=== PATIENT | female | born 1965 | race Caucasian/White ===

== ENCOUNTER 2021-01-29 10:53 | Inpatient (IN) ==
[2021-01-29] MEDS ORDERED: SODIUM CHLORIDE 0.9% 1,000 ML IV STA (11:32)
[2021-01-29 13:07] LABS: Basophils % 0.4 % (0.0-0.8); Eosinophils % 0.4 % (0.00-10.9); Hematocrit 26.4 VOL% (35.7-47.0); Hemoglobin 9.4 GM/DL (12.0-16.0); Lymphocytes # 0.2 10*3/uL (1.4-4.0); Lymphocytes % 10.3 % (21.3-54.2); Mean Corpuscular HGB Conc 35.6 GM/DL (32-36); Mean Corpuscular Volume 90.1 FL (87-102); Mean Platelet Volume 8.4 FL (9.6-12.0); Neutrophils % 71.9 % (38.7-73.9); Platelet Count 343 T/CUMM (130-400); Red Blood Count 2.93 MC/CUMM (3.8-5.5); Red Cell Distribution Width 17.9 % (9.3-17.3); White Blood Count 2.2 T/CUMM (4-12)
[2021-01-29 13:27] LABS: Albumin 2.7 G/DL (3.4-5.0); Bilirubin,Total 0.5 MG/DL (0.20-1.00); Osmolality,Calculated 276.5 MOS/KG (273-304); Total Protein 6.2 G/DL (6.4-8.2)
[2021-01-29 13:28] LABS: Potassium 2.3 MMOL/L (3.5-5.1)
[2021-01-29] MEDS ORDERED: POTASSIUM CHLORIDE 20 MEQ TABLET PO STA (13:32)
[2021-01-29] MEDS ORDERED: DEXTROSE 50% 25 GM/50 ML VIAL IV PRN (14:06)
[2021-01-29] MEDS ORDERED: ONDANSETRON 4 MG/2 ML VIAL IV PRN (14:06)
[2021-01-29] MEDS ORDERED: ACETAMINOPHEN 325 MG TABLET PO PRN (14:06)
[2021-01-29] MEDS ORDERED: GLUCAGON 1 MG VIAL IM PRN (14:06)
[2021-01-29] MEDS ORDERED: MAGNESIUM SULF RIDER 4 GM/100 ML PREMIX IV PRN (14:34)
[2021-01-29 14:39] LABS: Eosinophils 2 % (0-10); Lymphocytes 8 % (20-55); Segmented Neutrophils 77 % (50-85); Total Cells Counted 100
[2021-01-29 14:40] LABS: Hypochromasia 2+; Microcytosis 1+
[2021-01-29 14:41] LABS: Platelet Estimate Increased
[2021-01-29] MEDS: MAGNESIUM SULF RIDER 4 GM/100 ML PREMIX IV ONE ×2 (15:00)
[2021-01-29] MEDS: MAGNESIUM SULF RIDER 2 GM/50 ML PREMIX IV PRN ×2 (15:00→17:18)
[2021-01-29] MEDS: DEXAMETHASONE 4 MG TABLET PO SCH (17:18)
[2021-01-29] MEDS: PANTOPRAZOLE 40 MG VIAL IV SCH (17:18)
[2021-01-29] MEDS: NYSTATIN 500,000 UNIT/5 ML UDCUP PO SCH ×3 (17:19→20:05)
[2021-01-29] MEDS: DEXT 5% NACL 0.45% KCL 40 MEQ 40 MEQ/1,000 ML BAG IV SCH (20:05)
[2021-01-30] MEDS: DEXT 5% NACL 0.45% KCL 40 MEQ 40 MEQ/1,000 ML BAG IV SCH ×2 (03:30→19:36)
[2021-01-30 06:17] LABS: Basophils % 0.8 % (0.0-0.8); Eosinophils % 0.8 % (0.00-10.9); Hematocrit 24.8 VOL% (35.7-47.0); Hemoglobin 8.9 GM/DL (12.0-16.0); Lymphocytes # 0.2 10*3/uL (1.4-4.0); Lymphocytes % 13.7 % (21.3-54.2); Mean Corpuscular HGB Conc 35.9 GM/DL (32-36); Mean Corpuscular Volume 89.9 FL (87-102); Mean Platelet Volume 8.5 FL (9.6-12.0); Monocytes % 15.3 % (1.7-12.7); Neutrophils % 69.4 % (38.7-73.9); Platelet Count 335 T/CUMM (130-400); Red Blood Count 2.76 MC/CUMM (3.8-5.5); Red Cell Distribution Width 18.3 % (9.3-17.3); White Blood Count 1.2 T/CUMM (4-12)
[2021-01-30 06:39] LABS: Calcium 8.3 MG/DL (8.5-10.1); Osmolality,Calculated 279.4 MOS/KG (273-304); Potassium 3.2 MMOL/L (3.5-5.1)
[2021-01-30 06:45] LABS: Atypical Lymphocytes Few; Hypochromasia 1+; Lymphocytes 15 % (20-55); Microcytosis 1+; Platelet Estimate Adequate; Segmented Neutrophils 73 % (50-85); Total Cells Counted 100
[2021-01-30] MEDS: MAGNESIUM SULF RIDER 2 GM/50 ML PREMIX IV PRN (08:51)
[2021-01-30] MEDS: NYSTATIN 500,000 UNIT/5 ML UDCUP PO SCH ×4 (08:52→20:39)
[2021-01-30] MEDS: PANTOPRAZOLE 40 MG VIAL IV SCH (08:54)
[2021-01-30] MEDS ORDERED: HYDROcod/ACETAMIN 7.5-325 MG/15 ML UDCUP PO PRN (08:55)
[2021-01-30] MEDS ORDERED: MORPHINE 2 MG/1 ML SYRINGE IV PRN (08:56)
[2021-01-30] MEDS: FILGRASTIM-SNDZ 300 MCG/0.5 ML SYRINGE SUBCUT SCH (11:15)
[2021-01-30] MEDS: PIPERACILLIN/TAZOBACTAM 3,375 MG in SODIUM CHLORIDE 0.9% 100 ML IV SCH ×2 (11:18→19:35)
[2021-01-30] MEDS: POTASSIUM CHLORIDE RIDER 10 MEQ/100 ML PREMIX IV PRN ×3 (11:18→13:35)
[2021-01-30] MEDS: MYLANTA/LIDO VISC/DIPH 300 ML BOTTLE SWISH/SWAL PRN ×2 (11:52→15:40)
[2021-01-30] MEDS: DEXAMETHASONE 4 MG TABLET PO SCH (15:16)
[2021-01-31] MEDS: DEXT 5% NACL 0.45% KCL 40 MEQ 40 MEQ/1,000 ML BAG IV SCH ×2 (00:22→12:03)
[2021-01-31] MEDS: PIPERACILLIN/TAZOBACTAM 3,375 MG in SODIUM CHLORIDE 0.9% 100 ML IV SCH ×2 (01:21→10:19)
[2021-01-31 05:40] LABS: Basophils # 0.1 10*3/uL (0.0-0.2); Basophils % 0.8 % (0.0-0.8); Eosinophils % 0.3 % (0.00-10.9); Hematocrit 25.9 VOL% (35.7-47.0); Hemoglobin 9.3 GM/DL (12.0-16.0); Immature Granulocytes % 0.9 %; Immature Granulocytes Absolute 0.06 #; Lymphocytes # 0.3 10*3/uL (1.4-4.0); Lymphocytes % 4.7 % (21.3-54.2); Mean Corpuscular HGB Conc 35.9 GM/DL (32-36); Mean Corpuscular Volume 90.9 FL (87-102); Mean Platelet Volume 8.7 FL (9.6-12.0); Monocytes % 7.6 % (1.7-12.7); Neutrophils % 85.7 % (38.7-73.9); Platelet Count 330 T/CUMM (130-400); Red Blood Count 2.85 MC/CUMM (3.8-5.5); White Blood Count 6.6 T/CUMM (4-12)
[2021-01-31 06:03] LABS: Anisocytosis 2+; Band Neutrophils 30 % (0-10); Lymphocytes 5 % (20-55); Metamyelocytes 3 %; Platelet Estimate Normal; Segmented Neutrophils 58 % (50-85); Total Cells Counted 100
[2021-01-31 06:04] LABS: Burr Cells Few
[2021-01-31 06:16] LABS: Calcium 8.7 MG/DL (8.5-10.1); Osmolality,Calculated 277.3 MOS/KG (273-304); Potassium 4.1 MMOL/L (3.5-5.1)
[2021-01-31] MEDS: MAGNESIUM SULF RIDER 2 GM/50 ML PREMIX IV PRN (08:01)
[2021-01-31 08:34] VITALS: BP 144/80
[2021-01-31] MEDS: NYSTATIN 500,000 UNIT/5 ML UDCUP PO SCH ×2 (09:05→13:00)
[2021-01-31] MEDS: PANTOPRAZOLE 40 MG VIAL IV SCH (09:09)
[2021-01-31] MEDS: FILGRASTIM-SNDZ 300 MCG/0.5 ML SYRINGE SUBCUT SCH (09:10)
== END 2021-01-31 13:30 | disposition home or self-care (01) | DRG 392 ==
LOC: N.ED 10:53 → N.EDINP 14:19 → N.4E 16:36
PROVIDERS: ADMIT Internal Medicine; ATTEND Internal Medicine